=== PATIENT | female | born 1965 | race Caucasian/White ===

== ENCOUNTER → 2017-07-22 14:12 | Outpatient (CLI) | payer OTHER ==
[2012-10-16 05:57] VITALS: BMI 40.5
== END | disposition home or self-care (01) ==
LOC: D.MRI 14:12
DX: M25.461 Effusion, right knee (principal)

== ENCOUNTER → 2017-08-27 10:06 | Outpatient (CLI) | payer OTHER ==
[2012-10-16 05:57] VITALS: BMI 40.5
== END | disposition home or self-care (01) ==
LOC: D.MRI 10:06
DX: S83.221A Peripheral tear of medial meniscus, current injury, right knee, initial encounter (principal)

== ENCOUNTER 2017-09-16 09:20 | Day surgery (SDC) | payer OTHER ==
[2017-09-13 10:05] LABS: HEMOGLOBIN 12.9 g/dL (12-16); MCH 30.4 pg (26.0-34.0); MCHC 33.1 g/dL (31.0-37.0); MEAN PLATELET VOLUME 9.4 fL (7.4-10.4); RBC 4.24 10x6/uL (4.00-5.40); RDW 12.7 % (11.5-14.5); WBC 7.8 10x3/uL (4.8-10.8)
[2017-09-13 10:18] LABS: CALC OSMOLALITY 278 mosm/kg (275-300); CALCIUM 8.9 mg/dL (8.5-10.1); CARBON DIOXIDE 28.3 mmol/L (21.0-32.0); CHLORIDE - SERUM 107 mmol/L (98-107); CREATININE - SERUM 0.8 mg/dL (0.6-1.3); GLUCOSE 84 mg/dL (74-106); POTASSIUM - SERUM 4.6 mmol/L (3.5-5.1); SODIUM 140 mmol/L (136-145); UREA NITROGEN 14 mg/dL (7-18); eGFR NON AFRICAN AMERICAN 79 mL/min (90-120)
[~2017-09-16] VITALS: Ht 177.8 cm; Wt 115.9 kg
--- NOTE | ~2017-09-16 | OP ---
PATIENT NAME: UZAIR SOTO MEDICAL RECORD: [id number] :63 LOCATION:D.OPS ADMISSION DATE: SURGEON: MARYLU LEONE MD DATE OF OPERATION: 09/16/2017 PREOPERATIVE DIAGNOSES: Anterior cruciate ligament tear, posterior cruciate ligament tear, medial meniscus tear, lateral collateral ligament laxity, and medial collateral ligament tear. POSTOPERATIVE DIAGNOSES: Anterior cruciate ligament tear, posterior cruciate ligament tear, medial meniscus tear, lateral collateral ligament laxity, and medial collateral ligament tear. PROCEDURES: 1. Arthroscopically assisted PCL reconstruction allograft. 2. Arthroscopically assisted ACL allograft. 3. MCL imbrication and tightening. 4. Medial meniscal repair. SURGEON: Marylu Leone MD ANESTHESIA: General. INTRAOPERATIVE COMPLICATIONS: Essentially none. For terminal MCL repair, an arthrotomy was performed. OPERATIVE SUMMARY IN DETAIL: After obtaining the appropriate preoperative orthopedic surgery consent as well as anesthetic consultation, evaluation and clearance, the patient was brought to the operating room and placed on the operating table in supine position. After general laryngeal mask airway was administered, tourniquet was placed about the proximal aspect of the right lower extremity. Extremity was prepped and draped in routine sterile fashion. The leg was elevated and exsanguinated, tourniquet inflated to 350 mmHg. Routine inferolateral portal was established followed by superomedial portal and inferomedial portal. Diagnostic arthroscopy did reveal the patient to have a complete ACL, PCL tear. Unfortunately, the patient was also found to have a medial meniscal root tear. Attention was first turned to generalized debridement of all the PCL stumps as well as the ACL residual stumps. They were in overall bad condition. Having completed this, the Arthrex meniscal repair system was utilized. The meniscal repair guide was utilized to drill the RetroCut drill bit into the posterior lateral corner of the tibia. A small socket was made with a 6 mm reverse cutting drill. Having completed this arthroscopically, the coreless fiber lengths were both placed in the torn meniscus and then shuttled through the prepared graft. These were pulled in nice and snug with excellent reapproximation of the meniscus back to the corner and then tied over a button. Next, attention was turned to the PCL. The PCL tibial tunnel was very gingerly prepared. Care was taken to avoid the popliteal structures and arciniega were put into place. The tibial tunnel was prepared and reamed. This was followed by placement of the femoral tunnel. The all-inside femoral tunnel guide was then utilized to create the femoral tunnel under direct arthroscopic visualization. Passing guidewire was then utilized to pass the PCL and the PCL graft was then pulled into place into the sockets. Fixation on the femoral side was done with OPERATIVE REPORT [id number] IVONNEGANESHUZAIR NADIYA the TightRope and fixation on the tibial side was done with a combination of both dog bone as well as interference screws. Having completed this, attention was turned to the ACL. Again after debriding the ACL stump with a more lateral approach of the tibia to ensure noncrossing the tunnels, the tibial tunnel guide was created and then using the over the top guide the femoral tunnel was created after the spade tipped pin had been driven transcortically and out the lateral cortex of the femur. The socket was drilled on the femur and the prepared [id number] allograft was deployed in the usual fashion. At this point, arthroscopically the bone was not going into the bone plugs, small arthrotomy was created for open assisted placement of the bone plug. This resulted in excellent intra-articular graft length. The ACL was then very tightly tensioned using the TightRope against the femur and then it was anchored on the tibia with a transcortical post from Arthrex. Lastly through the arthrotomy I mentioned above, the MCL was found to be intact with good healing to the femoral cortical origin site. It was tightened with #2 Ethibond using an imbricated style roll, which did greatly tension the medial collateral ligament, which had already been mostly stabilized by the ACL and PCL graft. Having completed this, the paramedian arthrotomy was closed with 2-0 Ethibond #1 Vicryl and skin curtis and all arthroscopic portals were likewise closed with skin curtis. Sterile dressings were applied. A knee immobilizer was applied. The patient was awakened and taken to the recovery room in stable condition. All final needle and sponge counts were correct. TRANSINT:[id number] Voice Confirmation ID: [id number] DOCUMENT ID: [id number] 11/22/2017 Edited per ed riggs. MARYLU LEONE MD at 1349 CC: [id number] DICTATION DATE: 09/19/17 09 MINE PROMOTOR: 09/19/17 1122 [facility] 09/17/17 [facility] [address] [place] [address]
[~2017-09-16 09:20] MED LIST: ADIPEX-P37.5 MG PO; AMBIEN10 MG PO; HYDROCODONE-APA1 TAB PO; LISINOPRIL10 MG PO; METFORMIN HCL500 M1 PO; SOMA350 MG PO; SYNTHROID25 MCG PO; ZOCOR20 MG PO
[2017-09-16 09:51] VITALS: BP 118/78; BMI 35.9
[2017-09-16 19:15] VITALS: BP 115/71
[2017-09-16 20:07] VITALS: BP 115/71
[2017-09-17 00:44] VITALS: BP 101/48
[2017-09-17 05:52] VITALS: BP 101/49; Ht 177.8 cm; Wt 115.9 kg
[2017-09-17 06:38] LABS: HEMATOCRIT 33.2 % (36.0-48.0); HEMOGLOBIN 10.5 g/dL (12-16)
[2017-09-17] MEDS ORDERED: PERCOCET 10/3251 TA1 PO (08:13)
[2017-09-17] MEDS ORDERED: ELIQUIS2.5 MG PO (08:14)
[2017-09-17 08:19] VITALS: BP 102/45
== END 2017-09-17 14:23 | disposition home or self-care (01) ==
LOC: D.OPS 09:20 → D.PAN 11:30 → D.OPS 11:45 → D.PAN 11:50 → D.MS 19:13 → D.OPS 09-17 14:23
PROVIDERS: Anesthesiology; Orthopaedic Surgery
DX: S83.512A Sprain of anterior cruciate ligament of left knee, initial encounter (principal); S83.522A Sprain of posterior cruciate ligament of left knee, initial encounter; S83.242A Other tear of medial meniscus, current injury, left knee, initial encounter; M23.8X2 Other internal derangements of left knee; S83.422A Sprain of lateral collateral ligament of left knee, initial encounter; X58.XXXA Exposure to other specified factors, initial encounter; Z01.812 Encounter for preprocedural laboratory examination

== ENCOUNTER 2018-03-27 06:50 | Day surgery (SDC) | payer OTHER ==
[2018-03-26 14:35] LABS: HEMATOCRIT 37.8 % (36.0-48.0); HEMOGLOBIN 12.6 g/dL (12-16); MCH 29.5 pg (26.0-34.0); MCHC 33.3 g/dL (31.0-37.0); MCV 88.5 fL (80.0-100.0); MEAN PLATELET VOLUME 10.2 fL (7.4-10.4); RBC 4.27 10x6/uL (4.00-5.40); RDW 13.7 % (11.5-14.5); WBC 9.7 10x3/uL (4.8-10.8)
[2018-03-26 14:46] LABS: ANION GAP 11.8 mmol/L (8-16); CALCIUM 9.2 mg/dL (8.5-10.1); CARBON DIOXIDE 28.5 mmol/L (21.0-32.0); CREATININE - SERUM 1.4 mg/dL (0.6-1.3); POTASSIUM - SERUM 4.3 mmol/L (3.5-5.1)
[~2018-03-27] VITALS: Ht 177.8 cm; Wt 113.4 kg
--- NOTE | ~2018-03-27 | OP ---
PATIENT NAME: UZAIR LOYA MEDICAL RECORD: [id number] :63 LOCATION:D.OPS ADMISSION DATE: SURGEON: MARYLU LEONE MD DATE OF OPERATION: 03/27/2018 PREOPERATIVE DIAGNOSIS: Recon instability of the right knee with ACL and MCL tear. POSTOPERATIVE DIAGNOSIS: Recon instability of the right knee with ACL and MCL tear. PROCEDURES: 1. Arthroscopic assisted allograft ACL reconstruction revision. 2. Allograft medial collateral ligament reconstruction. SURGEON: Marylu Leone MD ANESTHESIA: General. INTRAOPERATIVE COMPLICATIONS: None. SUMMARY OF PATHOLOGIC FINDINGS: The patient had complete tear of the MCL with retraction of the ends with medial instability. The patient also had a complete tear of the anterior cruciate ligament graft that had been placed approximately 14 months ago. The patient's medial and lateral root repairs from prior surgery were in excellent condition as was the PCL graft. INDICATIONS: Ms. Loya is a young lady, who unfortunately sustained a knee dislocation. She underwent meniscal repairs, ACL and PCL reconstruction and was held for a long time for MCL to heal. She did have stability and in the late postoperative phase began to have medial joint line instability and suffered a second injury resulting in a tear of her anterior cruciate ligament graft. OPERATIVE SUMMARY IN DETAIL: After obtaining the appropriate preoperative orthopedic surgery consent as well as anesthetic consultation, evaluation and clearance, the patient was brought to the operating room and placed on the operating table in supine position. After adequate general laryngeal mask airway was administered, tourniquet was placed about the proximal aspect of the right lower extremity. Right lower extremity was then prepped and draped in routine sterile fashion. The leg was elevated and exsanguinated, tourniquet was inflated to 350 mmHg. Routine inferolateral portal was established, followed by superomedial portal and inferomedial portal. Diagnostic arthroscopy showed the meniscal repairs to be in good shape, however, the ACL was torn. The ACL graft was debrided. A formal notchplasty was again widened at this point. The PCL was in excellent condition. No specific chondral defects were noted; however, the patient did have thinning in the medial joint line globally. At this point, the tibial tunnel was created with an 11 baton reamer. The femoral tunnel was completed over the spade tip drill guide and a 25-mm deep tunnel was created in the femur. The passing suture was passed with the spade tip Beath pin and then the [id number] allograft was passed into the femoral and tibial tunnels with good seating. TightRope technology was deployed and once the TightRope was secured against the lateral cortex of the femur, the knee was ranged several times and a tibial post that had been placed previously was backed out. Previously placed sutures were removed and it was reutilized in this case and the patient had excellent stability from the ACL while the medial collateral OPERATIVE REPORT [id number] UZAIR LOYA ligament remained lax. At this point, an incision was made over the medial aspect of the knee essentially from the medial epicondyle distally. Dissection was then carried down to the medial epicondyle. A semitendinosus graft was cut to the appropriate length and used to reconstruct the medial collateral ligament. Internal bracing technology was SwiveLock technology, was utilized to both secure the graft as well as secure the internal brace across the medial collateral ligament. Care was taken to be sure that it was not too tight as the patient already showed signs of medial joint line thinning. Having completed this, the patient's medial collateral ligament was stable as was the anterior cruciate ligament. All wounds were copiously irrigated and closed in usual fashion. Sterile dressings were applied. The patient was awakened and taken to recovery room in stable condition. All final needle and sponge counts were correct. TRANSINT:[id number] Voice Confirmation ID: [id number] DOCUMENT ID: [id number] VASU BENAVIDEZ, MARYLU WADE at 0724 CC: [id number] DICTATION DATE: 03/28/18 08 OUTSIDE REPAIRER SPECIAL: 03/28/18 0908 [facility] 03/28/[address] [address]
[~2018-03-27 06:50] MED LIST changes: +ELIQUIS2.5 MG PO; +PERCOCET 10/3251 TA1 PO
[2018-03-27 07:44] VITALS: BP 111/71; Ht 177.8 cm; Wt 113.4 kg
[2018-03-27 16:46] VITALS: BP 121/62
[2018-03-27 23:12] VITALS: BP 124/64
[2018-03-28 04:44] VITALS: BP 93/57
[2018-03-28 08:36] VITALS: BP 104/43
[2018-03-28 12:07] VITALS: BP 108/51
[2018-03-28] MEDS ORDERED: NORCO-10 PO (12:21)
[2018-03-28] MEDS ORDERED: ELIQUIS2.5 MG PO (12:21)
[2018-04-01 13:18] LABS: C1Q BINDING <1.2 ug Eq/mL (()); C3d IMMUNE COMPLEXES 8.8 ug Eq/mL (())
== END 2018-03-28 14:42 | disposition home or self-care (01) ==
LOC: D.OPS 06:50 → D.MS 06:50 → D.OPS 08:15 → D.PAN 11:45 → D.MS 14:26 → D.OPS 03-28 14:42
PROVIDERS: Anesthesiology; Orthopaedic Surgery
DX: M23.51 Chronic instability of knee, right knee (principal); S83.511A Sprain of anterior cruciate ligament of right knee, initial encounter; S83.411A Sprain of medial collateral ligament of right knee, initial encounter; X58.XXXA Exposure to other specified factors, initial encounter; Z01.812 Encounter for preprocedural laboratory examination

== ENCOUNTER → 2019-11-12 18:34 | Outpatient (CLI) | payer OTHER ==
[2018-03-27 07:44] VITALS: BMI 35.9
[~2019-11-12 18:34] MED LIST changes: +NORCO-10 PO
== END | disposition home or self-care (01) ==
LOC: D.LABREF 18:34
PROVIDERS: ATTEND Orthopaedic Surgery
DX: M17.11 Unilateral primary osteoarthritis, right knee (principal)

== ENCOUNTER 2019-11-23 11:33 | Inpatient (IN) | payer OTHER ==
[~2019-11-23] VITALS: Ht 177.8 cm; Wt 124.1 kg
[2019-12-01] MEDS ORDERED: HYDROCODON-ACE1 EA10 PO (13:34)
[2019-12-01] MEDS ORDERED: XANAX0.5 MG PO (13:35)
[2019-12-01] MEDS ORDERED: METHOCARBAMOL500 MG PO (13:35)
[2019-12-02 11:26] LABS: BILIRUBIN NEGATIVE (NEGATIVE); GLUCOSE NEGATIVE (NEGATIVE); KETONE NEGATIVE (NEGATIVE); NITRITE NEGATIVE (NEGATIVE); SPECIFIC GRAVITY 1.005 (1.005-1.020); UROBILINOGEN NORMAL (NORMAL)
[2019-12-02 11:34] LABS: BASOPHILS 0.3 % (0-2); EOSINOPHILS 1.8 % (0-7); HEMATOCRIT 41.5 % (36.0-48.0); HEMOGLOBIN 13.7 g/dL (12-16); IMMATURE GRANULOCYTES 0.3 % (0-5); LYMPHOCYTES 21.9 % (15-50); MCH 30.6 pg (26.0-34.0); MCV 92.8 fL (80.0-100.0); MEAN PLATELET VOLUME 9.7 fL (7.4-10.4); MONOCYTES 7.4 % (2-11); NEUTROPHILS 68.3 % (40-80); PLATELET COUNT 224 10x3/uL (130-400); RBC 4.47 10x6/uL (4.00-5.40); RDW 12.7 % (11.5-14.5); WBC 7.8 10x3/uL (4.8-10.8)
[2019-12-02 11:44] LABS: ANION GAP 11.8 mmol/L (8-16); CALCIUM 9.5 mg/dL (8.5-10.1); CARBON DIOXIDE 29.1 mmol/L (21.0-32.0); CREATININE - SERUM 1.1 mg/dL (0.6-1.3); POTASSIUM - SERUM 3.9 mmol/L (3.5-5.1)
[2019-12-02 11:47] LABS: APTT 28.1 SECONDS (22.8-39.4); INR 0.99 (0.85-1.17)
[2019-12-07] VITALS (12 sets, daily range): BP systolic 103–125; BP diastolic 52–68; Ht 177.8 cm; Wt 124.1 kg
[2019-12-07] MEDS ORDERED: ACETAMINOPHEN500 M1 PO (06:36)
--- NOTE | 2019-12-07 08:46 | NUR ---
0835-ALCOHOL/HIBICLENSE SCRUB PRIOR TO CHLORAPREP
--- NOTE | 2019-12-07 11:06 | NUR ---
PT RECIEVED TO ROOM 2213 FROM RECOVERY VIA BED. SPOUSE AT BEDSIDE. O2 @ 2L NC IN PLACE. IV TO LEFT FOREARM WITH LR @ 100ML/HR INFUSING. SITE WITHOUT REDNESS OR EDEMA. DRESSING TO RIGHT LOWER EXTREMITY C/D/I, ICE PACK IN PLACE. PULSES PALPABLE. ORIENTED TO CALL LIGHT, BED CONTROLS AND ROOM. CL WITHIN REACH. ENCOURAGED TO CALL WITH NEEDS.
--- NOTE | 2019-12-07 12:25 | MORECARE ---
CASE MANAGEMENT DISCHARGE SUMMARY PATIENT: UZAIR SOTO UNIT: [id number] ADM DATE: 12/07/19 AGE: 54 : 63 SEX: F ROOM/BED: D.2213 AUTHOR: BROOKE WASHINGTON PHYSICIAN: REFERRING PHYSICIAN: MARYLU LEONE MD DATE OF SERVICE: 12/07/19 Discharge Plan Patient Name: UZAIR SOTO Facility: [facility]:[place] : 1965 Planned Disposition: Anticipated Discharge Date: Discharge Date: Expected LOS: Initial Reviewer: [email or web address] Initial Review Date: 12/07/2019 Generated: 12/07/19 1:25 pm Patient Name: UZAIR SOTO Page [id number] at 1225 All edits/amendments must be made on the electronic document DICTATION DATE: 12/07/19 1225 BROWNELL OPERATOR: FABIO 12/07/19 1225 RPT#: [id number] DC DATE: STATUS: ADM IN [facility] [address] [place] [address] END OF REPORT
--- NOTE | 2019-12-07 13:50 | NUR ---
PT RESTING IN BED TALKING ON PHONE. RESP EVEN AND UNLABORED. O2 REMAINS IN PLACE AT 2L NC. PT REPORTS DECREASED PAIN WITH BRINE MAKER AT THIS TIME. PULSES PALPABLE TO RIGHT LOWER EXTREMITY. DENIES FURTHER NEEDS AT THIS TIME. CL WITHIN REACH. ENCOURAGED TO CALL WITH NEEDS.
--- NOTE | 2019-12-07 19:51 | NUR ---
PATIENT RESTING IN BED WITH NO S/S OF DISTRESS. ASSISTED PATIENT ON AND OFF BEDPAN PER HER REQUEST. ASSISTED PATIENT BACK ON CPM. PATIENT DENIES OTHER NEEDS AT THIS TIME. BED IN LOWEST POSITION AND CALL LIGHT WITHIN REACH. ENCOURAGED THE PATIENT TO CALL IF SHE HAS NEEDS. WILL CONTINUE TO MONITOR.
--- NOTE | 2019-12-07 20:58 | NUR ---
ADMINISTERED MEDS PER ORDERS. WILL CONTINUE TO MONITOR.
--- NOTE | 2019-12-07 21:30 | NUR ---
REMOVED PATIENT FROM CPM MACHINE
[2019-12-08 04:00] VITALS: BP 117/66
--- NOTE | 2019-12-08 05:10 | NUR ---
ATTEMPTED TO PLACE PATIENT ON CPM. MACHINE IS NOT WORKING. WILL LET [employer] KNOW TO SPEAK TO PT TO GET THE PATIENT ANOTHER MACHINE.
[2019-12-08 07:14] LABS: HEMOGLOBIN 12.2 g/dL (12-16); MCH 30.2 pg (26.0-34.0); MCHC 32.1 g/dL (31.0-37.0); MCV 94.1 fL (80.0-100.0); MEAN PLATELET VOLUME 10.3 fL (7.4-10.4); RBC 4.04 10x6/uL (4.00-5.40)
--- NOTE | 2019-12-08 07:47 | NUR ---
ALERT AND ORIENTED. LUNGS CLEAR BILATERALLY. HEART SOUNDS S1 AND S2 HEARD IN ALL FEILDS. BOWEL SOUNDS ACTIVE X 4. DRSG TO RIGHT KNEE C/D/I. CPM MACHINE NOT WORKING. WILL TALK TO PT TODAY ABOUT GETTING NEW MACHINE. IV TO LFA PATENT WITHOUT REDNESS. DENIES NEEDS. BED LOW. CALL UMANA AND PERSONAL ITEMS IN REACH. WILL CONTINUE TO MONITOR.
[2019-12-08 08:14] VITALS: BP 117/59
[2019-12-08 12:54] VITALS: BP 106/56
--- NOTE | 2019-12-08 15:11 | NUR ---
BANDAR 12/06. WOUND CARE WILL MONITOR NEEDED.
[2019-12-08 16:38] VITALS: BP 121/93
[2019-12-08 20:00] VITALS: BP 111/52
[2019-12-09] VITALS: BP 120/60
[2019-12-09 05:02] LABS: HEMATOCRIT 37.5 % (36.0-48.0); HEMOGLOBIN 11.9 g/dL (12-16); MCH 30.1 pg (26.0-34.0); MCHC 31.7 g/dL (31.0-37.0); MCV 94.9 fL (80.0-100.0); MEAN PLATELET VOLUME 9.9 fL (7.4-10.4); RBC 3.95 10x6/uL (4.00-5.40); RDW 13.4 % (11.5-14.5); WBC 9.7 10x3/uL (4.8-10.8)
--- NOTE | 2019-12-09 07:51 | NUR ---
ALERT AND ORIENTED. LUNGS CLEAR BILATERALLY. HEART SOUNDS S1 AND S2 HEARD IN ALL CARRILLO. BOWEL SOUNDS ACTIVE X 4. IV TO LFA PATENT WITHOUT REDNESS. DRSG TO RIGHT KNEE C/D/I. DENIES NEEDS. BED LOW. CALL UMANA AND PERSONAL ITEMS IN REACH. WILL CONTINUE TO MONITOR.
[2019-12-09] MEDS ORDERED: ELIQUIS2.5 MG PO (08:17)
[2019-12-09] MEDS ORDERED: HYDROCODON-ACE1 EA10 PO (08:17)
[2019-12-09 08:44] VITALS: BP 138/80
--- NOTE | 2019-12-09 10:53 | MORECARE ---
CASE MANAGEMENT DISCHARGE SUMMARY PATIENT: UZAIR SOTO UNIT: [id number] ADM DATE: 12/07/19 AGE: 54 : 63 SEX: F ROOM/BED: D.2213 AUTHOR: BOROKE WASHINGTON PHYSICIAN: REFERRING PHYSICIAN: MARYLU LEONE MD DATE OF SERVICE: 12/09/19 Discharge Plan Patient Name: UZAIR SOTO Facility: [facility]:[place] : 1965 Planned Disposition: Anticipated Discharge Date: Discharge Date: Expected LOS: Initial Reviewer: [email or web address] Initial Review Date: 12/07/2019 Generated: 12/09/19 11:52 am External Providers External Provider: OTHER-OTHER Next Contact Date: Service Request Date: Service Type: Resolution: Reviewer: Comments: Last DP export: 12/07/19 11:25 am Patient Name: UZAIR SOTO Page [phone] at 1053 All edits/amendments must be made on the electronic document DICTATION DATE: 12/09/19 1052 SECURITY SPECIALIST: FABIO 12/09/19 1052 RPT#: [id number] DC DATE: STATUS: ADM IN [facility] [address] [place] [address] END OF REPORT
--- NOTE | 2019-12-09 11:03 | NUR ---
DISCHARGE EDUCATION PROVIDED BOTH WRITTEN AND VERBAL. VERBALIZED UNDERSTANDING. DENIES FURTHER QUESTIONS. IV REMOVED FROM LFA WITH TIP INTACT. EXTRA DRSG SENT HOME WITH PATIENT AND EDUCATION PROVIDED ON DRSG CHANGE. VERBALIZED UNDERSTANDING. PATIENT DC HOME WITH ALL BELONGINGS.
--- NOTE | 2019-12-09 11:47 | MORECARE ---
CASE MANAGEMENT DISCHARGE SUMMARY PATIENT: UZAIR SOTO UNIT: [id number] ADM DATE: 12/07/19 AGE: 54 : 63 SEX: F ROOM/BED: D.2213 AUTHOR: BROOKE WASHINGTON PHYSICIAN: REFERRING PHYSICIAN: MARYLU LEONE MD DATE OF SERVICE: 12/09/19 Discharge Plan Patient Name: UZAIR SOTO Facility: [facility]:[place] : 1965 Planned Disposition: Home or Self Care Anticipated Discharge Date: Discharge Date: 12/09/2019 Expected LOS: Initial Reviewer: [email or web address] Initial Review Date: 12/07/2019 Generated: 12/09/19 12:47 pm Comments DCP- Discharge Planning Updated by [email or web address]: Ratna Scott on 12/09/19 10:[address] Patient Name: UZAIR SOTO Admission Status: Elective Accout number: [id number] Admission Date: 12-07-2019 : 1965 Admission Diagnosis: Attending: MARYLU LEONE Current LOS: 2 Anticipated DC Date: Planned Disposition: Home or Self Care Primary Insurance: [employer] PPO Discharge Planning Comments: CM met with patient to complete initial dc planning assessment. CM educated patient on the CM role and verbal consent given by patient to complete assessment. Patient lives at home with her spouse where she is independent with her care. At discharge patient plans to return home and feels this is a safe discharge. CM discussed availability of home health, rehab services, and medical equipment. She has a walker, BSC and will call the [employer] for them to deliver her CPM (it has already been set up ) She will have OP PT at [facility], her first appointment is for tomorrow at 3:00pm. I have faxed an order to them and spoke with Mandie. She also got a copy of the order in her dc packet. Patient denied known discharge needs at this time. CM will continue to follow and will assist as needed with dc plans/needs. Starcher And Tenter Range Feeder: Ratna Scott DCPIA - Discharge Planning Initial Assessment Updated by [email or web address]: Ratna Scott on 12/09/19 11:44 am * Is the patient Alert and Oriented? Yes * How many steps to enter\exit or inside your home? * PCP JONES * Pharmacy [facility] * Preadmission Environment Home with Family * ADLs Independent * Equipment Bedside Commode Rolling Walker * Other Equipment CPM * List name and contact numbers for known caregivers / representatives who currently or will assist patient after discharge: BRETT SOTO () [phone] * Verbal permission to speak to the caregivers and representatives has been obtained from the patient. N/A * Community resources currently utilized None * Additional services required to return to the preadmission environment? Yes * Can the patient safely return to the preadmission environment? Yes * Has this patient been hospitalized within the prior 30 days at any hospital? No Last DP export: 12/09/19 9:53 am Patient Name: UZAIR SOTO Page [phone] at 1147 All edits/amendments must be made on the electronic document DICTATION DATE: 12/09/19 1147 FOREST ECONOMIST: FABIO 12/09/19 1147 RPT#: [id number] DC DATE:12/09/19 STATUS: DIS IN [facility] [address] [place] [address] END OF REPORT
--- NOTE | 2019-12-10 07:38 | MORECARE ---
CASE MANAGEMENT DISCHARGE SUMMARY PATIENT: UZAIR SOTO UNIT: [id number] ADM DATE: 12/07/19 AGE: 54 : 63 SEX: F ROOM/BED: D.2213 AUTHOR: BROOKE WASHINGTON PHYSICIAN: REFERRING PHYSICIAN: MAYRLU LEONE MD DATE OF SERVICE: 12/10/19 Discharge Plan Patient Name: UZAIR SOTO Facility: [facility]:[place] : 1965 Planned Disposition: Home or Self Care Anticipated Discharge Date: Discharge Date: 12/09/2019 Expected LOS: Initial Reviewer: [email or web address] Initial Review Date: 12/07/2019 Generated: 12/10/19 8:37 am Comments DCP- Discharge Planning Updated by [id number]: Ratna Scott on 12/09/19 10:[address] Patient Name: UZAIR SOTO Admission Status: Elective Accout number: [id number] Admission Date: 12-07-2019 : 1965 Admission Diagnosis: Attending: MARYLU LEONE Current LOS: 2 Anticipated DC Date: Planned Disposition: Home or Self Care Primary Insurance: [employer] PPO Discharge Planning Comments: CM met with patient to complete initial dc planning assessment. CM educated patient on the CM role and verbal consent given by patient to complete assessment. Patient lives at home with her spouse where she is independent with her care. At discharge patient plans to return home and feels this is a safe discharge. CM discussed availability of home health, rehab services, and medical equipment. She has a walker, BSC and will call the [employer] for them to deliver her CPM (it has already been set up ) She will have OP PT at [facility], her first appointment is for tomorrow at 3:00pm. I have faxed an order to them and spoke with Mandie. She also got a copy of the order in her dc packet. Patient denied known discharge needs at this time. CM will continue to follow and will assist as needed with dc plans/needs. Wax Ball Molder: Ratna Scott DCPIA - Discharge Planning Initial Assessment Updated by [email or web address]: Ratna Scott on 12/09/19 11:44 am * Is the patient Alert and Oriented? Yes * How many steps to enter\exit or inside your home? * PCP JONES * Pharmacy [facility] * Preadmission Environment Home with Family * ADLs Independent * Equipment Bedside Commode Rolling Walker * Other Equipment CPM * List name and contact numbers for known caregivers / representatives who currently or will assist patient after discharge: BRETT SOTO () [phone] * Verbal permission to speak to the caregivers and representatives has been obtained from the patient. N/A * Community resources currently utilized None * Additional services required to return to the preadmission environment? Yes * Can the patient safely return to the preadmission environment? Yes * Has this patient been hospitalized within the prior 30 days at any hospital? No Last DP export: 12/09/19 10:47 am Patient Name: UZAIR SOTO Page [id number] at 0738 All edits/amendments must be made on the electronic document DICTATION DATE: 12/10/1937 HAND MOLDER AND CASTER: FABIO 12/10/19 0737 RPT#: [id number] DC DATE:12/09/19 STATUS: DIS IN [facility] [address] [place] [address] END OF REPORT
== END 2019-12-09 11:04 | disposition home or self-care (01) | DRG 470 ==
LOC: D.SDCHOLD 12-02 10:00 → D.MS 12-07 06:05 → D.SDCHOLD 12-07 08:15 → D.MS 12-07 10:29
PROVIDERS: ADMIT Orthopaedic Surgery; ATTEND Orthopaedic Surgery
PROC: 0SRC0J9 Replacement of Right Knee Joint with Synthetic Substitute, Cemented, Open Approach (ICD-10-PCS; principal; 2019-12-08)
DX: M17.11 Unilateral primary osteoarthritis, right knee (principal); I10 Essential (primary) hypertension